=== PATIENT | male | born 1995 | race Caucasian/White ===

== ENCOUNTER 2021-08-03 18:23 | Emergency (ER) | payer OTHER ==
[~2021-08-03] VITALS: Ht 185 cm; Wt 87.0 kg
--- NOTE | 2021-08-03 18:53 | ED Fever ---
History of Present Illness General Chief Complaint: Fever-Adult/Adol Stated Complaint: FEVER Nursing Triage Note: pt states fever for 3 days, cough started today, not eating well, headache Source: patient History of Present Illness Date Seen by Provider: Aug 03, 2021 Time Seen by Provider: 18:38 Initial Comments PT ARRIVES VIA POV FROM HOME C/O SUBJECTIVE FEVER X 3 DAYS BEGAN HAVING A NON-PRODUCTIVE COUGH TODAY C/O HEADACHE C/O FATIGUE C/O DECREASED APPETITE TODAY HAS SOME POST NASAL DRAINAGE, BUT NOT A SORE THROAT NO LOSS OF TASTE OR SMELL NO SHORTNESS OF BREATH NO NAUSEA/VOMITING/DIARRHEA TOOK 400 MG IBUPROFEN AT NOON TODAY, OTHERWISE HAS NOT TAKEN ANYTHING FOR SYMPTOMS PT HAS NOT HAD COVID OR FLU VACCINES. PT WORKS [employer] DE[employer] IS NOT KNOWN IF HE HAS HAD ANY SICK CONTACTS PT LIVES ALONE. DENIES ANY CHRONIC MEDICAL PROBLEMS PCP: HOLLIE-THERESA Allergies and Home Medications Allergies Coded Allergies: No Known Drug Allergies (Unverified , 08/03/21) Patient Home Medication List Home Medication List Reviewed: Yes No Active Prescriptions or Reported Meds Review of Systems Review of Systems Constitutional: see HPI, fever, malaise EENTM: no symptoms reported Respiratory: see HPI, cough; No short of breath Cardiovascular: no symptoms reported Gastrointestinal: see HPI; No constipation; loss of appetite; No nausea, No vomiting Genitourinary: no symptoms reported Musculoskeletal: no symptoms reported Skin: no symptoms reported Psychiatric/Neurological: See HPI, Headache Hematologic/Lymphatic: No Symptoms Reported Immunological/Allergic: no symptoms reported Past Npegdxi-Ikkdyv-Bxserm Hx Patient Social History Tobacco Use?: Yes Tobacco type used: Cigarettes Smoking Status: Former Smoker Substance use?: No Alcohol Use?: No Past Medical History Surgeries: No Respiratory: No Cardiac: No Neurological: No Genitourinary: No Gastrointestinal: No Musculoskeletal: No Endocrine: No HEENT: No Cancer: No Psychosocial: No Integumentary: No Blood Disorders: No Physical Exam Vital Signs - First Documented 08/03/21 18:37 Temp 38.3 Pulse 113 Resp 20 B/P (MAP) 140/87 (104) Pulse Ox 95 O2 Delivery Room Air Capillary Refill : Less Than 3 Seconds Height: '" Weight: lbs. oz. kg; 25.00 BMI Method: General Appearance: WD/WN, no apparent distress HEENT: PERRL/EOMI, normal ENT inspection, TMs normal, pharynx normal Neck: normal inspection Respiratory: normal breath sounds, no respiratory distress, no accessory muscle use Cardiovascular: regular rate, rhythm, no murmur Gastrointestinal: non tender, soft Extremities: normal inspection Neurologic/Psychiatric: plane tender II-XII nml as tested, no motor/sensory deficits, alert, normal mood/affect, oriented x 3 Skin: normal color, warm/dry; No rash Progress/Results/Core Measures Suspected Sepsis SIRS Temperature: Pulse: 113 Respiratory Rate: 20 Blood Pressure 140 /87 Mean: 104 Results/Orders Lab Results Laboratory Tests Test 08/03/21 18:40 Range/Units Influenza Type A (RT-PCR) Not Detected Not Detecte Influenza Type B (RT-PCR) Not Detected Not Detecte SARS-CoV-2 RNA (RT-PCR) Detected H Not Detecte Group A Streptococcus Screen NEGATIVE NEGATIVE My Orders Orders - PEPE VERA DO Rapid Strep A Screen (08/03/21 18:38) Covid 19 Inhouse Test (08/03/21 18:38) Influenza A And B By Pcr (08/03/21 18:38) Isolation Central Supply Req (08/03/21 18:38) Acetaminophen Tablet (Tylenol Tablet) (08/03/21 19:00) Ibuprofen Tablet (Motrin Tablet) (08/03/21 19:00) Medications Given in ED Current Medications Medications Dose Ordered Sig/Adelina Route Start Time Stop Time Status Last Admin Dose Admin Acetaminophen 1,000 mg ONCE ONCE PO 08/03/21 19:00 08/03/21 19:01 DC 08/03/21 19:02 1,000 MG Ibuprofen 800 mg ONCE ONCE PO 08/03/21 19:00 08/03/21 19:01 DC 08/03/21 19:02 800 MG Vital Signs/I&O 08/03/21 08/03/21 18:37 19:22 Temp 38.3 37.3 Pulse 113 101 Resp 20 20 B/P (MAP) 140/87 (104) 133/79 Pulse Ox 95 96 O2 Delivery Room Air Room Air Capillary Refill : Less Than 3 Seconds Blood Pressure Mean: 104 Progress Note : Progress Note PLACED IN ISOLATION ROOM PPE WORN COVID, FLU, STREP TESTING DONE. GIVEN TYLENOL AND MOTRIN FOR FEVER. Departure Impression Primary Impression: COVID-19 virus infection Disposition: 01 HOME, SELF-CARE Condition: Stable Departure-Patient Inst. Decision time for Depature: 19:16 Referrals: [facility] Patient Instructions: COVID-19 ED, Preventing the Spread of an Infectious Disease Add. Discharge Instructions: LOTS OF CLEAR LIQUIDS TYLENOL 1 GRAM + MOTRIN 800 MG 4 TIMES A DAY FOR PAIN OR FEVER OVER THE COUNTER MEDICATIONS FOR COUGH AND CONGESTION FOLLOW UP WITH [facility] IN 1 WEEK IF NO BETTER QUARANTINE FOR 10 DAYS All discharge instructions reviewed with patient and/or family. Voiced understanding. Scripts No Active Prescriptions or Reported Meds Work/School Note: Work Release Form Date Seen in the Emergency Department: Aug 03, 2021 Return to Work: Aug 14, 2021 PEPE VERA DO Aug 03, 2021 18:53
[2021-08-03] MEDS ORDERED: IBUPROFEN 800 MG (MOTRIN) TAB PO ONE (19:00)
[2021-08-03] MEDS ORDERED: ACETAMINOPHEN 500 MG TAB (TYLENOL) PO ONE (19:00)
[2021-08-03 19:22] VITALS: BP 133/79
== END 2021-08-03 19:30 | disposition home or self-care (01) ==
LOC: ER 18:29
DX: U07.1 COVID-19 (principal); Z87.891 Personal history of nicotine dependence; Z28.310 Unvaccinated for COVID-19
CPT/HCPCS: 87430; 87636; 99283